=== PATIENT | female | born 1995 | race Caucasian/White ===

== ENCOUNTER 2021-12-02 21:56 | Emergency (ER) | payer BC ==
[~2021-12-02] VITALS: Ht 175.3 cm; Wt 136.1 kg
--- NOTE | 2021-12-02 22:10 | NUR ---
BIB 79 [employer] FOR CUTTING HER L WRIST. REFUSED TO ANSWER QUESTIONS ON TRIAGE. PATIENT CAME WITH 3 SUPERFICIAL LACERATED WOUND ON LEFT WRIST APPROX 1CM. PATIENT SAID, SHE USED BLADE TO HURT HERSELF. THE LAST SUICIDAL ATTEMPT SHE DID WAS BETWEEN 3-4 WEEKS AGO. PLACED COMFORTABLY IN BED. VITALS CHECKED.
--- NOTE | 2021-12-02 22:17 | NUR ---
COVID SWAB DONE AND SENT TO LAB
--- NOTE | 2021-12-02 22:17 | NUR ---
URINE COLLECTED AND SENT TO LAB
[2021-12-02 23:01] LABS: BASOPHILS % (AUTO) 0.3 % (0.0-2.0); EOSINOPHILS % (AUTO) 0.5 % (0.0-6.0); HEMATOCRIT 43 % (33-45); HEMOGLOBIN 14.1 g/dL (11.5-14.8); LYMPHOCYTES # (AUTO) 3.3 K/uL (0.8-4.8); LYMPHOCYTES % (AUTO) 27.9 % (20.0-44.0); MEAN CORPUSCULAR HGB CONC 33 g/dl (31.0-36.0); MEAN CORPUSCULAR VOLUME 86 fL (82-100); MONOCYTES # (AUTO) 0.7 K/uL (0.1-1.30); MONOCYTES % (AUTO) 6.2 % (2.0-12.0); NEUTROPHILS # (AUTO) 7.8 K/uL (1.8-8.9); NEUTROPHILS % (AUTO) 65.1 % (43.0-81.0); PLATELET COUNT (AUTO) 312 K/uL (150-450); RED BLOOD CELL COUNT(AUTO) 5.04 MIL/uL (4.0-5.2)
[2021-12-02 23:18] LABS: BILIRUBIN,URINE MODERATE (NEGATIVE); COLOR,URINE DARK YELLOW (YELLOW); LEUKOCYTE ESTERASE ,URINE TRACE (NEGATIVE); NITRITE, URINE NEGATIVE (NEGATIVE); PROTEIN,URINE 100 mg/dl (NEGATIVE); UGLUCOSE NEGATIVE (NEGATIVE); UROBILINOGEN,URINE 0.2 EU/dL (0.2)
[2021-12-02 23:20] LABS: CALCIUM, SERUM 10.3 mg/dL (8.5-10.1); CARBON DIOXIDE 25 mmol/L (21-32); CHLORIDE 104 mmol/L (98-107); GLUCOSE 90 mg/dL (74-106); POTASSIUM 3.8 mmol/L (3.5-5.1); SODIUM SERUM 141 mmol/L (136-145); UREA NITROGEN, BLOOD 8 mg/dL (7-18)
[2021-12-03 00:07] LABS: ALANINE AMINOTRANSFERASE 28 U/L (12-78); ALBUMIN 3.9 g/dL (3.4-5.0); ALCOHOL, BLOOD < 3 mg/dL (0-0); ALKALINE PHOSPHATASE 104 U/L (46-116); ASPARTATE AMINOTRANSFERASE 13 U/L (15-37); BILIRUBIN,DIRECT 0.1 mg/dL (0.0-0.2); BILIRUBIN,TOTAL 0.4 mg/dL (0.2-1.0); TOTAL PROTEIN, SERUM 8.8 g/dL (6.4-8.2)
[2021-12-03 00:14] LABS: ACETAMINOPHEN 0 ug/ml (10-30)
--- NOTE | 2021-12-03 02:03 | NUR ---
[facility], AT BED SIDE FOR PSYCH EVAL
--- NOTE | 2021-12-03 02:48 | NUR ---
patient is medically stable for d/c per md. Patient discharged to home in stable condition. Written and verbal after care instructions given. Patient verbalizes understanding of instruction. pt was provided with resources
[2021-12-03 02:49] VITALS: BP 128/84
[2021-12-03 06:55] LABS: BACTERIA,URINE Many /HPF (None Seen); MUCUS,URINE Moderate /LPF (None Seen); RBC,URINE 0-2 /HPF (0-2); SQUAMOUS EPITHELIAL CELL,UR Moderate /HPF (None Seen)
== END 2021-12-03 02:50 | disposition home or self-care (01) ==
LOC: ER 22:01
DX: F12.10 Cannabis abuse, uncomplicated (principal); S60.812A Abrasion of left wrist, initial encounter; X78.9XXA Intentional self-harm by unspecified sharp object, initial encounter; Y92.239 Unspecified place in hospital as the place of occurrence of the external cause; Z20.822 Contact with and (suspected) exposure to COVID-19; R45.851 Suicidal ideations; Z88.0 Allergy status to penicillin; Z88.2 Allergy status to sulfonamides
CPT/HCPCS: 36415; 80048; 80076; 80143; 80307; 80320; 81001; 85025; 87086; 87426; 99285; C9803; G0480